=== PATIENT | female | born 1990 | race Caucasian/White ===

== ENCOUNTER → 2018-10-20 | Outpatient (CLI) | payer BC, OTHER ==
[~2018-10-20] MED LIST: DOCU100C37 PO; FERR-84 PO; IBUP-1773 PO; MULT-228 PO
--- NOTE | 2018-10-20 18:13 | Diagnostic Imaging Report ---
EXAM: OB ultrasound complete. DATE: October 20, 2018. COMPARISON: None. INDICATION: 28-year-old female, supervision of otherwise normal . FINDINGS: Multiple grayscale sonographic images were obtained of the gravid uterus. OVERVIEW: Within the uterus there is a single living gestation in cephalic position. There is positive movement and heart motion. heart rate was identified at 136 beats per minute. There is a subjectively normal amniotic fluid index. The placenta is posterior and without demonstrated previa. The cervix is not well demonstrated. growth parameters are summarized in detail on the accompanying separate chart. The approximate mean gestational age by first ultrasound measurements is 20 weeks 2 days +/- 1 week variability. Estimated weight based on today's measurements is 318 g. ANATOMIC SURVEY: There is unremarkable appearance of the posterior fossa. The lateral ventricles are not well demonstrated. Longitudinal images of the spine are unremarkable. There is visualization of the stomach, kidneys and urinary bladder. There is no provided four-chamber view of the heart. There is a three-vessel cord with an unremarkable insertion into the abdominal wall. 4 extremities are seen. IMPRESSION: 1. Single living intrauterine with approximate mean gestational age of 20 weeks 2 days +/- 1 week. 2. Limitations of the survey, as above, without demonstrated abnormality. BIOMETRICAL MEASUREMENTS ARE FOLLOWS: Biparietal 4.68 cm, age 20 weeks 2 days. Head circumference 17.43 cm, age 20 weeks 0 days. Abdominal circumference 14.31 cm, age 19 weeks 5 days. Femur length 3.23 cm, age 20 weeks 1 days. Sonographic estimate age: 20 weeks 1 days. Sonographic estimated date of delivery: 03/08/2019. Estimated Weight: 318 gm (+/- 46 gm). LMP percentile: 24%. heart rate: 136 beats per minute. number: 1 of 1. Dictated by: Dictated on workstation # [id number]
== END ==
LOC: RAD 15:35
PROVIDERS: ATTEND Obstetrics & Gynecology
DX: Z34.92 Encounter for supervision of normal pregnancy, unspecified, second trimester (principal); Z3A.20 20 weeks gestation of pregnancy
CPT/HCPCS: 76805

== ENCOUNTER 2019-02-20 00:15 | Outpatient (CLI) | payer BC ==
[~2019-02-20] VITALS: Ht 157.5 cm; Wt 71.7 kg
--- NOTE | 2019-02-20 00:10 | NUR ---
BONNY GILL presented to unit via ambulation from ED, accompanied by SO, with c/o CONTRACTIONS. BONNY GILL weighed, gowned, voided, and to bed. EFHM and TOCO applied, VS taken. BONNY GILL oriented to bed controls, call light, TV, heat, and A/C controls.
[2019-02-20 00:16] VITALS: BP 130/87
[2019-02-20 00:45] LABS: BILIRUBIN,URINE NEGATIVE (NEGATIVE); CLARITY,URINE CLEAR; COLOR,URINE YELLOW; GLUCOSE, URINE (UA) NEGATIVE (NEGATIVE); KETONES,URINE NEGATIVE (NEGATIVE); LEUKOCYTE ESTERASE ,URINE NEGATIVE (NEGATIVE); NITRITE,URINE NEGATIVE (NEGATIVE); PH,URINE 6 (5-9); PROTEIN,URINE NEGATIVE (NEGATIVE); UROBILINOGEN,URINE NORMAL (NORMAL)
[2019-02-20 00:46] LABS: BACTERIA,URINE NEGATIVE /HPF
--- NOTE | 2019-02-20 01:30 | NUR ---
D/C instructions given & explained per Nikolas Miller, RN, pt. verbalized understanding & signed. Copy of D/C instructions to pt. Pt. left [facility] ambulatory escorted by , to home via private vehicle.
== END 2019-02-20 01:30 | disposition home or self-care (01) ==
LOC: LDRP 00:15 → UNDOADMIN 00:15 → WSo 00:15 → LDRP 00:15 → UNDODISIN 01:30 → WSo 01:30 → EDSTATUS 02-23 13:58
PROVIDERS: ATTEND Obstetrics & Gynecology
DX: O62.9 Abnormality of forces of labor, unspecified (principal); Z3A.37 37 weeks gestation of pregnancy
CPT/HCPCS: 81000; 99214

== ENCOUNTER 2019-03-07 09:51 | Inpatient (IN) | payer BC ==
[~2019-03-07] VITALS: Ht 157.5 cm; Wt 72.7 kg
[2019-03-07] VITALS (40 sets, daily range): BP systolic 78–133; BP diastolic 41–85
--- NOTE | 2019-03-07 09:45 | NUR ---
BONNY GILL presented to unit via AMBULATORY from OFFICE, accompanied by DR. FORREST FOR LABOR. BONNY GILL weighed, gowned, voided, and to bed. EFHM and TOCO applied, VS taken. BONNY GILL oriented to bed controls, call light, TV, heat, and A/C controls.
[2019-03-07] MEDS ORDERED: D5 LR IV SOLUTION 1,000 ML IV SCH (10:12)
[2019-03-07] MEDS ORDERED: D5 LR IV SOLUTION 1,000 ML IV ONE (10:16)
--- NOTE | 2019-03-07 10:16 | History & Physical-OB ---
OB - Chief Complaint & HPI Date/Time Date of Admission: Date of Admission: March 07, 2019 at 09:51 Date seen by a Provider: March 07, 2019 Time Seen by a Provider: 09:30 Chief Complaint/History OB-Reason for Admission/Chief: Onset of Labor Hx : 2 Hx Para: 1 Expected Date of Delivery: March 07, 2019 Admission Nurse Assessment Rev: Yes History of Labs A pos Antibody neg RI RPR NR HBsAg NR HIV NR GC neg GBS neg Allergies and Home Medications Allergies Coded Allergies: Penicillins (Verified Allergy, Unknown, 12/04/15) codeine (Verified Adverse Reaction, Mild, HALLUCINATIONS, HAS HAD LORTAB BEFORE, 12/11/15) Home Medications Multivitamin 1 Each Tab.chew, 1 EACH PO DAILY, (Reported) Patient Home Medication List Home Medication List Reviewed: Yes OB - History Hx of Present Care: Yes Ultrasounds: Normal mid trimester US Obstetrical Complications: None Medical Complications: None Obstetrical History Hx Termination: No Hx Multiple Gestation: No Hx Stillbirth: No Hx Complication: No Hx Induced Hypertens: No Hx Maternal Gestational Diabet: No Delivery History Hx Dystocia: No Hx Large For Gestational Age I: No Hx Small for Gestational Age I: No Hx Section: No Hx Vaginal Delivery Post C-Sec: No Hx Blood Disorders: No Adverse Rxn to Tranfusion: No Patient Past Medical History none Immunizations Hepatitis A: No Hepatitis B: Yes Tetanus Booster (TDap): Less than 5yrs Date of Influenza Vaccine: Sep 02, 2015 OB - Admission Exam Physical Exam HEENT: NCAT Heart: Rhythm Normal Lungs: Clear Abdomen: Gravid Extremities: Normal Reflexes: Normal Cervical Dilatation: 3cm Effacement: 75% Station: -1 Membranes: Intact Heart Rate: 130's Accelerations: Accelerations Present Decelerations: No Decelerations Short Term Variability: Present Correction Variability: Average (6-25) Contractions on Admission: < 5 Minutes Apart OB - Assessment/Plan/Diagnosis Assessment Assessment: active labor Admission Dx 28 yo @ 40 weeks Post dates Active labor GBS neg Admission Status: Inpatient Order (span 2 midnights) Reason for Inpatient Admission: active labor term Plan Plan: Expectant Management SHIKHA FORREST DO March 07, 2019 10:16
[2019-03-07 10:19] LABS: BASOPHILS % (AUTO) 0 % (0-10); EOSINOPHILS # (AUTO) 0.1 10^3/uL (0.0-0.3); EOSINOPHILS % (AUTO) 1 % (0-10); HEMATOCRIT 37 % (35-52); HEMOGLOBIN 12.9 G/DL (11.5-16.0); LYMPHOCYTES # (AUTO) 1.8 X 10^3 (1.0-4.0); LYMPHOCYTES % (AUTO) 19 % (12-44); MEAN CORPUSCULAR HEMOGLOBIN 32 PG (25-34); MEAN CORPUSCULAR HGB CONC 35 G/DL (32-36); MEAN CORPUSCULAR VOLUME 92 FL (80-99); MEAN PLATELET VOLUME 10.7 FL (7.4-10.4); MONOCYTES # (AUTO) 0.8 X 10^3 (0.0-1.0); MONOCYTES % (AUTO) 9 % (0-12); NEUTROPHILS # (AUTO) 6.9 X 10^3 (1.8-7.8); NEUTROPHILS % (AUTO) 72 % (42-75); PLATELET COUNT 149 10^3/uL (130-400); RED CELL DISTRIBUTION WIDTH 12.5 % (10.0-14.5); WHITE BLOOD COUNT 9.6 10^3/uL (4.3-11.0)
[2019-03-07] MEDS ORDERED: ONDANSETRON 4 MG/2 ML (SDV) Z0FRAN IVP PRN (12:15)
--- OUTSIDE RECORDS SUMMARY | 2019-03-07 12:48 | XMS REPORT | Continuity of Care Document ---
Author Organization Unknown Address Unknown Allergies Active Description Code Type Severity Reaction Onset Reported/Identified Relationship to Patient Clinical Status Yes codeine [id number] Drug Allergy Unknown N/A 12/04/2015 Yes Penicillins [id number] Drug Allergy Unknown N/A 12/04/2015 Yes codeine [id number] Drug Allergy Mild HALLUCINATIONS, 12/11/2015 Medications There is no data. Problems Date Dx Coded Attending Type Code Diagnosis Diagnosed By 05/24/2014 SENDY WANG DO V06.1 TDAP DX 12/04/2015 Ot N89.8 OTHER SPECIFIED NONINFLAMMATORY DISORDER 12/04/2015 Ot O26.893 OTH RELATED CONDITIONS, THIRD 12/04/2015 Ot O47.1 FALSE LABOR AT OR AFTER 37 COMPLETED WEE 12/04/2015 Ot Z3A.37 37 WEEKS GESTATION OF 12/09/2015 LUIS A ASHLEY, KEANU Hearn Ot Z34.93 ENCNTR FOR SUPRVSN OF NORMAL PREG, UNSP, 12/13/2015 SHIKHA FORREST DO Ot D62 ACUTE POSTHEMORRHAGIC ANEMIA 12/13/2015 SHIKHA FORREST DO Ot O90.81 ANEMIA OF THE PUERPERIUM 12/13/2015 SHIKHA FORREST DO Ot Z37.0 SINGLE LIVE 12/13/2015 SHIKHA FORREST DO Ot Z3A.38 38 WEEKS GESTATION OF 10/21/2018 SHIKHA FORREST DO Ot Z34.92 ENCNTR FOR SUPRVSN OF NORMAL PREG, UNSP, 10/21/2018 SHIKHA FORREST DO Ot Z3A.20 20 WEEKS GESTATION OF 11/05/2018 SHIKHA FORREST DO Ot Z34.92 ENCNTR FOR SUPRVSN OF NORMAL PREG, UNSP, 11/05/2018 SHIKHA FORREST DO Ot Z3A.20 20 WEEKS GESTATION OF 02/20/2019 SHIKHA FORREST DO Ot O62.9 ABNORMALITY OF FORCES OF LABOR, UNSPECIF 02/20/2019 FENECH DO, SHIKHA S Ot Z3A.37 37 WEEKS GESTATION OF 02/23/2019 FENECH DO, SHIKHA S Ot O62.9 ABNORMALITY OF FORCES OF LABOR, UNSPECIF 02/23/2019 FENECH DO, SHIKHA S Ot Z3A.37 37 WEEKS GESTATION OF 02/23/2019 FENECH DO, SHIKHA S Ot Z34.92 ENCNTR FOR SUPRVSN OF NORMAL PREG, UNSP, 02/23/2019 STEVEECH DO, SHIKHA S Ot Z3A.20 20 WEEKS GESTATION OF 02/23/2019 FENECH DO, SHIKHA S Ot O62.9 ABNORMALITY OF FORCES OF LABOR, UNSPECIF 02/23/2019 FENECH DO, HSIKHA S Ot Z3A.37 37 WEEKS GESTATION OF 02/24/2019 STEVEECH DO, SHIKHA S Ot O62.9 ABNORMALITY OF FORCES OF LABOR, UNSPECIF 02/24/2019 FENECH DO, SHIKHA S Ot Z3A.37 37 WEEKS GESTATION OF Procedures Code Description Performed By Performed On 2M1VDFN DIVISION OF FEMALE PERINEUM, EXTERNAL AP 12/11/2015 [id number] DELIVERY OF PRODUCTS OF CONCEPTION, EXTE 12/11/2015 Results Test Result Range Complete urinalysis with reflex to culture - 02/20/19 00:10 Urine color determination YELLOW NRG Urine clarity determination CLEAR NRG Urine pH measurement by test strip 6 5-9 Specific gravity of urine by test strip 1.020 1.016- 1.022 Urine protein assay by test strip, semi-quantitative NEGATIVE NEGATIVE Urine glucose detection by automated test strip NEGATIVE NEGATIVE Erythrocytes detection in urine sediment by light microscopy NEGATIVE NEGATIVE Urine ketones detection by automated test strip NEGATIVE NEGATIVE Urine nitrite detection by test strip NEGATIVE NEGATIVE Urine total bilirubin detection by test strip NEGATIVE NEGATIVE Urine urobilinogen measurement by automated test strip (mass/volume) NORMAL NORMAL Urine leukocyte esterase detection by dipstick NEGATIVE NEGATIVE Automated urine sediment erythrocyte count by microscopy (number/high power field) NONE NRG Automated urine sediment leukocyte count by microscopy (number/high power field ) NONE NRG Bacteria detection in urine sediment by light microscopy NEGATIVE NRG Squamous epithelial cells detection in urine sediment by light microscopy 2-5 NRG Crystals detection in urine sediment by light microscopy NONE NRG Casts detection in urine sediment by light microscopy NONE NRG Mucus detection in urine sediment by light microscopy NEGATIVE NRG Complete urinalysis with reflex to culture NO NRG Encounters ACCT No. Visit Date/Time Discharge Status Pt. Type Provider Facility Loc./Unit Complaint [id number] 05/24/2014 15:04:00 05/24/2014 23:59:59 CLS Outpatient SENDY WANG DO [id number] 02/20/2019 00:15:00 02/20/2019 01:30:00 DIS Outpatient SHIKHA FORREST DO [facility] WSo CONTRACTIONS [id number] 10/20/2018 15:35:00 10/20/2018 23:59:59 CLS Outpatient SHIKHA FORREST DO [facility] RAD [id number] 12/10/2015 15:04:00 12/13/2015 15:20:00 DIS Inpatient SHIKHA FORREST DO [facility] LDRP LABOR [id number] 12/09/2015 10:26:00 12/09/2015 10:34:00 DIS Outpatient KEANU GUNN MD [facility] POSSIBLE WATER BREAKING [id number] 12/04/2015 20:02:00 Document Registration [id number] 11/25/2018 14:20:00 11/25/2018 23:59:59 [facility]
--- NOTE | 2019-03-07 13:18 | NUR ---
Anesthesia called and notified of need for labor epidural.
[2019-03-07] MEDS ORDERED: SUFENTA 0.6MCG/ML BUPIVA 0.125 100 ML ONE (13:19)
[2019-03-07] MEDS ORDERED: CATHETER FLUSH 10 ML SYR IV SCH ×2 (14:00→22:00)
[2019-03-07] MEDS ORDERED: fentaNYL INJECTION 100 MCG/2 ML AMP ONE (14:11)
[2019-03-07] MEDS ORDERED: LACTATED RINGERS 1,000 ML IV ONE (14:13)
[2019-03-07] MEDS ORDERED: diphenhydrAMINE 50 MG/ML INJ (BENADRYL) IV PRN (14:15)
[2019-03-07] MEDS ORDERED: ONDANSETRON 4 MG/2 ML (SDV) Z0FRAN IV PRN (14:15)
[2019-03-07] MEDS ORDERED: NALOXONE 0.4 MG/ML 1 ML (NARCAN) VIAL IV PRN ×2 (14:15)
[2019-03-07] MEDS ORDERED: EPIDURAL (SUFENTA 0.6MCG/ML BUPIVA 0.125%) 100 ML BAG EPI PRN (14:15)
[2019-03-07] MEDS ORDERED: METOCLOPRAMIDE INJ 10 MG/2 ML (REGLAN) IV PRN (14:15)
[2019-03-07] MEDS ORDERED: OXYTOCIN/NORMAL SALINE 500 ML IV ONE ×2 (14:47→17:17)
[2019-03-07] MEDS ORDERED: LIDOCAINE/EPI 2% 1:200,00 (XYLOCAINE) 10 ML VIAL ONE (16:03)
[2019-03-07] MEDS ORDERED: OXYTOCIN/NORMAL SALINE 500 ML IV SCH ×2 (17:07→17:42)
--- NOTE | 2019-03-07 17:14 | OB Labor & Delivery Record ---
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 Pitocin augmentation of 2 mu/min used to progress patient to complete and +2 station L&D Stage2 Monitors and Tracing Monitor Mode: External Heart Rate: 140 Monitor Accelerations: Uniform Monitor Decelerations: Variable Penitentiary Variability: Average (6-10) Short Term Variability: Present Position: Right Occiput Anterior Presentation: Vertex Cord Descript/Complications Cord Vessel Description: 3 Vessels Delivery Type Infant Delivery Method: Spontaneous Vaginal Anterior Shoulder: Right Episiotomy/Perineal Laceration Laceraction(s)/Extensions: Yes Episiotomy Description: Midline Degree (describe repair) midline episiotomy repaired using 3-0 rapide and 2-0 vicryl suture Condition of Delivery 1 minute Comment: 8 5 minute Comment: 9 Notes Live male infant weight 7lbs 9oz Condition of Infant Condition of Infant: Living Exam: Gross Congenital Abnorm. (polydactyl, hypospadias) Resuscitation Resuscitation: N/A - Spontaneous Resp L&D Stage3 Stage Three Stage III Date: March 07, 2019 Pictocin Pitocin Administration Comment: 30 mu wide open at delivery of placenta Placenta Delivery Placenta Delivery: Spontaneous Delivery Summary Summary Estimated blood loss (mL): 350 Attending at delivery: Susie Forrest DO Condition of Delivery Post Hemorrhage: Yes Condition of Mother stable Condition of (s) stable SUSIE FORREST DO March 07, 2019 17:14
[2019-03-07] MEDS ORDERED: TETANUS,DIPTH,PERTUSS P/F (BOOSTRIX) 0.5 ML VIAL IM ONE (17:15)
[2019-03-07] MEDS ORDERED: WITCH HAZEL(TUCKS) 40 EA JAR TOP PRN (17:15)
[2019-03-07] MEDS ORDERED: DIBUCAINE (NUPERCAINAL) 1% OINT 30 GM TOP PRN (17:15)
[2019-03-07] MEDS ORDERED: HYDROcodone/APAP 5 MG/325 MG (LORTAB) TAB PO PRN (17:15)
[2019-03-07] MEDS ORDERED: MEASLES,MUMPS,RUBELLA 1 EA INJ SQ ONE (17:15)
[2019-03-07] MEDS ORDERED: BENZOCAINE/MENTHOL (DERMOPLAST) 56 ML CAN TP PRN (17:15)
--- NOTE | 2019-03-07 17:16 | Discharge Inst-Women's Service ---
Discharge Inst-Women's Serv Depart Medication/Instructions New, Converted or Re-Newed RX: RX on Chart Final Diagnosis PPD 2 NVD Consults/Follow Up Additional Follow Up: Yes Orders/Referrals [facility] in 6 weeks Activity Activity: Activity as Tolerated Driving Instructions: No Driving for 1 Week NO SMOKING: NO SMOKING Nothing Inside Vagina: No Douching, No [place], No Tampons Diet Discharge Diet: No Restrictions Symptoms to Report to : Bleeding Excessive, Pain Increased, Fever Over 101 Degrees F, Vaginal Bleeding Increase, Questions/Concerns For Any Problems or Questions: Contact Your Physician SHIKHA FORREST DO March 07, 2019 17:16
[2019-03-07] MEDS ORDERED: Benzocaine/Menthol TP (17:18)
[2019-03-07] MEDS ORDERED: IBUP-844 PO (17:18)
[2019-03-07] MEDS ORDERED: FERR325T18 PO (17:18)
[2019-03-07] MEDS ORDERED: DOCU-143 PO (17:18)
[2019-03-07] MEDS ORDERED: ACHD5005 PO (17:18)
[2019-03-07] MEDS: IBUPROFEN 600 MG (MOTRIN) TAB PO SCH (19:56)
[2019-03-07] MEDS: DOCUSATE SODIUM 100 MG (COLACE) CAP PO SCH (19:56)
--- NOTE | 2019-03-07 20:00 | NUR ---
pt vomiting. wet cloth provided. pt denies any need for anti-nausea. meal tray delivered. pt will call out when finished to be moved to 311
--- NOTE | 2019-03-07 21:03 | NUR ---
FF 1 BELOW UMBILICUS. LIGHT RUBRA NOTED. PAD AND PANTIES APPLIED. PT ASSISTED UP TO W'C AND TAKEN DOWN TO 311. PT ASSISTED TO BATHROOM. POSITIVE VOID. PERICARE COMPLETED. PT AMBULATED BACK TO BED. ORIENTATED TO ROOM. INFO PAPERS DISCUSSED. PT VERBALIZED UNDERSTANDING. WILL CONTINUE TO MONITOR.
[2019-03-08] MEDS: ACETAMINOPHEN 500 MG TAB (TYLENOL) PO PRN ×3 (00:27→18:34)
[2019-03-08 02:00] VITALS: BP 99/64
[2019-03-08] MEDS: IBUPROFEN 600 MG (MOTRIN) TAB PO SCH ×4 (02:14→21:11)
--- NOTE | 2019-03-08 05:20 | Postpartum Progress Note ---
Note Note Day # 1 Subjective: Patient is without complaints. Ambulating, voiding. Tolerating a regular diet without nausea or vomiting. Normal lochia. Pain is well controlled with oral pain medications. Objective: Physical Exam: General - Alert and oriented, no apparent distress Abdomen - Soft, appropriately tender to palpation, non-distended, fundus firm at umbilicus Extremities - no edema, negative Shira's bilaterally Assessment: PPD 1 NVD CBC pending Plan: Routine care. Encourage breast feeding. Encourage ambulation. Ferrous sulfate supplementation. Plan for discharge tomorrow Vitals - Labs Vital Signs - I&O Vital Signs Date Time Temp Pulse Resp B/P (MAP) Pulse Ox O2 Delivery O2 Flow Rate FiO2 03/08/19 02:00 98.1 64 18 99/64 (76) Room Air 03/07/19 21:00 99.2 85 18 114/68 (83) Room Air 03/07/19 18:51 81 18 103/70 (81) Room Air 03/07/19 18:36 98.7 63 18 101/67 (78) Room Air 03/07/19 18:22 66 18 119/71 (87) Room Air 03/07/19 18:06 85 18 108/62 (77) Room Air 03/07/19 17:21 98.6 72 18 100/58 (72) Room Air 03/07/19 16:38 92 18 122/77 (92) Room Air 03/07/19 16:24 73 18 116/73 (87) Room Air 03/07/19 16:08 96 18 113/66 (82) Room Air 03/07/19 15:53 100 18 103/63 (76) Room Air 03/07/19 15:35 78 18 99/50 (66) 99 Room Air 03/07/19 15:30 104 18 92/60 (71) 94 Room Air 03/07/19 15:25 81 18 102/62 (75) 100 Room Air 03/07/19 15:20 91 18 106/63 (77) 100 Room Air 03/07/19 15:15 64 18 96/58 (71) 99 Room Air 03/07/19 15:10 69 18 99/64 (76) 100 Room Air 03/07/19 15:05 100 18 96/56 (69) 99 Room Air 03/07/19 15:00 88 18 101/60 (74) 100 Room Air 03/07/19 14:55 98.3 03/07/19 14:49 65 18 100/63 (75) 100 Room Air 03/07/19 14:46 70 18 105/63 (77) 100 Room Air 03/07/19 14:43 92 18 101/61 (74) 96 Room Air 03/07/19 14:40 97 18 101/57 (72) 96 Room Air 03/07/19 14:37 86 18 111/63 (79) Room Air 03/07/19 14:34 63 18 117/56 (76) 99 Room Air 03/07/19 14:31 80 18 116/58 (77) 98 Room Air 03/07/19 14:28 78 18 124/57 (79) Room Air 03/07/19 14:25 83 18 101/55 (70) 100 Room Air 03/07/19 14:22 82 18 110/51 (70) 100 Room Air 03/07/19 14:18 67 18 106/52 (70) 100 Non Rebreather 10.00 03/07/19 14:13 59 18 90/54 (66) 100 Non Rebreather 10.00 03/07/19 14:08 91 18 109/62 (78) Room Air 03/07/19 14:03 88 18 111/53 (72) 92 Room Air 03/07/19 13:45 84 20 78/41 (53) Room Air 03/07/19 13:00 63 20 109/59 (76) Room Air 03/07/19 12:30 68 20 100/54 (69) Room Air 03/07/19 12:04 98.5 03/07/19 11:58 83 20 114/66 (82) Room Air 03/07/19 11:27 76 20 120/85 (97) Room Air 03/07/19 11:00 83 20 113/74 (87) Room Air 03/07/19 10:30 68 20 133/80 (97) Room Air 03/07/19 10:00 90 20 114/81 (92) Room Air I & O 03/08/19 07:00 Intake Total 3000 ml Balance 3000 ml Labs Laboratory Tests 03/07/19 10:02: White Blood Count 9.6, Red Blood Count 4.08L, Hemoglobin 12.9, Hematocrit 37, Mean Corpuscular Volume 92, Mean Corpuscular Hemoglobin 32, Mean Corpuscular Hemoglobin Concent 35, Red Cell Distribution Width 12.5, Platelet Count 149, Mean Platelet Volume 10.7H, Neutrophils (%) (Auto) 72, Lymphocytes (%) (Auto) 19 , Monocytes (%) (Auto) 9, Eosinophils (%) (Auto) 1, Basophils (%) (Auto) 0, Neutrophils # (Auto) 6.9, Lymphocytes # (Auto) 1.8, Monocytes # (Auto) 0.8, Eosinophils # (Auto) 0.1, Basophils # (Auto) 0.0 SHIKHA FORREST DO March 08, 2019 05:20
[2019-03-08 06:19] VITALS: BP 105/68
[2019-03-08 06:24] LABS: BASOPHILS % (AUTO) 0 % (0-10); EOSINOPHILS # (AUTO) 0.1 10^3/uL (0.0-0.3); EOSINOPHILS % (AUTO) 1 % (0-10); HEMATOCRIT 29 % (35-52); HEMOGLOBIN 9.7 G/DL (11.5-16.0); LYMPHOCYTES # (AUTO) 1.5 X 10^3 (1.0-4.0); LYMPHOCYTES % (AUTO) 16 % (12-44); MEAN CORPUSCULAR HEMOGLOBIN 31 PG (25-34); MEAN CORPUSCULAR HGB CONC 34 G/DL (32-36); MEAN CORPUSCULAR VOLUME 93 FL (80-99); MEAN PLATELET VOLUME 10.6 FL (7.4-10.4); MONOCYTES % (AUTO) 11 % (0-12); NEUTROPHILS % (AUTO) 72 % (42-75); PLATELET COUNT 135 10^3/uL (130-400); RED CELL DISTRIBUTION WIDTH 12.4 % (10.0-14.5); WHITE BLOOD COUNT 9.6 10^3/uL (4.3-11.0)
--- NOTE | 2019-03-08 07:00 | NUR ---
REPORT FROM CHIP PEREZ.
[2019-03-08 08:15] VITALS: BP 116/69
[2019-03-08] MEDS: FERROUS SULF 325 MG (IRON) TAB PO SCH (09:38)
[2019-03-08] MEDS: PRENATAL VITAMIN 1 EA TAB PO SCH (09:38)
[2019-03-08] MEDS: DOCUSATE SODIUM 100 MG (COLACE) CAP PO SCH ×2 (09:39→21:11)
--- NOTE | 2019-03-08 09:45 | NUR ---
INITIAL ASSESSMENT COMPLETED, VSS, SEE INTERVENTIONS FOR DETAILED ASSESSMENT.
[2019-03-08 13:00] VITALS: BP 118/62
--- NOTE | 2019-03-08 13:38 | Anesthesia-Regional Post-Op ---
Regional Patient Condition Mental Status: Alert, Oriented x3 Circulation: Same as Pre-Op Headache: Absent Sensation: Full Recovery Motor Block: Absent Post Op Complications Complications None Follow Up Care/Instructions Patient Instructions None needed. Anesthesia/Patient Condition Patient is doing well, no complaints, stable vital signs, no apparent adverse anesthesia problems. No complications reported per nursing. NISH SPRINGER CRNA March 08, 2019 13:38
[2019-03-08 16:00] VITALS: BP 133/83
--- NOTE | 2019-03-08 18:35 | NUR ---
PT IN BED, FAMILY AT THE BEDSIDE. TYLENOL GIVEN PO; SEE EMAR FOR FURTHER. SHOWER SET UP PER REQUEST. NO FURTHER NEEDS VOICED, CALL LIGHT WITHIN REACH.
[2019-03-08 21:10] VITALS: BP 116/64
[2019-03-09] MEDS: ACETAMINOPHEN 500 MG TAB (TYLENOL) PO PRN (03:04)
[2019-03-09 04:57] VITALS: BP 98/55
[2019-03-09] MEDS: IBUPROFEN 600 MG (MOTRIN) TAB PO SCH ×3 (04:57→10:20)
--- NOTE | 2019-03-09 07:27 | Postpartum Progress Note ---
Note Note Day # 2 Subjective: Patient is without complaints. Ambulating, voiding. Tolerating a regular diet without nausea or vomiting. Normal lochia. Pain is well controlled with oral pain medications. Objective: Physical Exam: General - Alert and oriented, no apparent distress Abdomen - Soft, appropriately tender to palpation, non-distended, fundus firm at umbilicus Extremities - no edema, negative Shira's bilaterally Assessment: PPD 2 NVD Plan: Routine care. Encourage breast feeding. Encourage ambulation. Ferrous sulfate supplementation. Plan for discharge today Vitals - Labs Vital Signs - I&O Vital Signs Date Time Temp Pulse Resp B/P (MAP) Pulse Ox O2 Delivery O2 Flow Rate FiO2 03/09/19 04:57 98.0 74 18 98/55 (69) 97 Room Air 03/08/19 21:10 98.3 60 18 116/64 (81) 98 Room Air 03/08/19 16:00 98.7 73 18 133/83 (100) 100 Room Air 03/08/19 13:00 98.9 97 18 118/62 (80) 97 Room Air 03/08/19 08:15 98.4 69 18 116/69 (85) 98 Room Air SHIKHA FORREST DO March 09, 2019 07:27
[2019-03-09 07:31] VITALS: BP 112/70
--- NOTE | 2019-03-09 07:47 | NUR ---
PT UP IN ROOM, INITIAL SHIFT ASSESSMENT COMPLETED; SEE INTERVENTION FOR FURTHER. S/O AT THE BEDSIDE. NO NEEDS VOICED AT THIS TIME.
--- NOTE | 2019-03-09 08:05 | NUR ---
DR. FORREST HERE ON UNIT, MAKING ROUNDS.
[2019-03-09] MEDS: DOCUSATE SODIUM 100 MG (COLACE) CAP PO SCH (10:20)
[2019-03-09] MEDS: FERROUS SULF 325 MG (IRON) TAB PO SCH (10:20)
[2019-03-09] MEDS: PRENATAL VITAMIN 1 EA TAB PO SCH (10:20)
--- NOTE | 2019-03-09 10:20 | NUR ---
PT . MEDS GIVEN PO; SEE EMAR FOR FURTHER. PT DENIES ANY NEEDS AT THIS TIME. PT INFORMED OF IMPENDING DISCHARGE, WILL COME BACK SHORTLY TO PROVIDE DISCHARGE INSTRUCTIONS, PT VERBALIZES UNDERSTANDING.
--- NOTE | 2019-03-09 10:55 | NUR ---
THIS RN TO BEDSIDE, PT HOLDING INFANT. DISCHARGE PAPERS PROVIDED AND REVIEWED WITH PT, PT VERBALIZES UNDERSTANDING AND DENIES ANY QUESTIONS AT THIS TIME. PAPER SIGNED. RX'S AND FOLLOW UP APPOINTMENT CARD ALSO PLACED INTO DISCHARGE FOLDER. NO NEEDS VOICED, CALL LIGHT WITHIN REACH.
--- NOTE | 2019-03-09 12:45 | NUR ---
PT DISCHARGED FROM -[facility] TO PERSONAL AUTO VIA AMBULATORY IN STABLE CONDITION ACC BY S/O, AND [facility] NURSING STUDENTS.
--- NOTE | 2019-03-10 18:36 | Physician Query Clarification ---
PQ-Intro New Diagnosis Admission/Discharge Admission Date: March 07, 2019 at 09:51 Discharge Date: March 09, 2019 at 12:45 The medical record reflects the following clinical scenario: History/Risk Factors: delivery Clinical Findings: Hemoglobin 12.9 on admission, dropped to 9.7 Treatment: Ferrous sulfate supplementation Question: What condition best reflects the above clinical scenario? Please document below. 1. Acute blood loss anemia 2. anemia 3. Other, with explanation of the clinical findings. 4. Clinically undetermined, no explanation for the clinical findings. PHYSICIAN RESPONSE What condition reflects above: Other, explanation/clinical finding Explanation of clincal finding , acute blood loss anemia In responding to this query, please exercise your independent professional judgment. The purpose of this communication is to more accurately reflect the complexity of your patients condition. The fact that a question is asked does not imply that any particular answer is desired or expected. Thank you for your timely response to this clarification. Requestors name: [ ] Phone # [ ] THIS PHYSICIAN QUERY FORM IS A PERMANENT PART OF THE MEDICAL RECORD TRACEY CORTEZ March 10, 2019 18:36 SHIKHA FORREST DO March 11, 2019 06:44
== END 2019-03-09 12:45 | disposition home or self-care (01) | DRG 806 ==
LOC: LDRP 09:51
PROVIDERS: ADMIT Obstetrics & Gynecology; ATTEND Obstetrics & Gynecology
PROC: 10E0XZZ Delivery of Products of Conception, External Approach (ICD-10-PCS; principal; 2019-03-07)
PROC: 0W8NXZZ Division of Female Perineum, External Approach (ICD-10-PCS; 2019-03-07)
DX: O48.0 Post-term pregnancy (principal); O90.81 Anemia of the puerperium; D62 Acute posthemorrhagic anemia; Z88.0 Allergy status to penicillin; Z88.5 Allergy status to narcotic agent; Z3A.40 40 weeks gestation of pregnancy; Z37.0 Single live birth
CPT/HCPCS: 36415; 85025; 86850; 86900; 86901

== ENCOUNTER → 2022-11-12 | Outpatient (CLI) | payer MEDICAID ==
[~2022-11-12] MED LIST changes: +ACHD5005 PO; +Benzocaine/Menthol TP; +DOCU-143 PO; +FERR325T18 PO; +IBUP-844 PO
--- NOTE | 2022-11-12 11:55 | Diagnostic Imaging Report ---
INDICATION: survey. TECHNIQUE: Multiple real-time grayscale images were obtained over the gravid uterus. COMPARISON: None. FINDINGS: There is a single live fetus in a transverse presentation with head to the maternal left. heart rate was recorded at 147 BPM. Placenta is posterior. No previa is detected. Amniotic fluid volume is normal. Cervical length is 3.3 cm. kidneys, bladder and stomach are unremarkable. brain is unremarkable. There is a four-chamber heart. There is a three-vessel cord with normal insertion. spine is unremarkable. Biometrical measurements are as follows: Biparietal 4.22 cm, age 18 weeks 6 days. Head circumference 17.37 cm, age 20 weeks 0 days. Abdominal circumference 15.30 cm, age 20 weeks 4 days. Femur length 3.20 cm, age 20 weeks 0 days. Sonographic estimate age: 19 weeks 6 days. Sonographic estimated date of delivery: 04/02/2023. Estimated Weight: 336 gm (+/- 49 gm). LMP percentile: 25%. heart rate: 147 beats per minute. number: 1 of 1. IMPRESSION: Single live IUP of 19 weeks 6 days gestational age with estimated date of confinement sonographically of 04/02/2023. No complicating features are detected. Dictated by: Dictated on workstation # [id number]
== END ==
LOC: RAD 09:33
PROVIDERS: ATTEND Obstetrics & Gynecology
DX: Z36.9 Encounter for antenatal screening, unspecified (principal); Z3A.19 19 weeks gestation of pregnancy
CPT/HCPCS: 76805

== ENCOUNTER → 2023-03-05 | Outpatient (CLI) | payer MEDICAID | LOC: LABNPT 10:40 | PROVIDERS: ATTEND Nurse Practitioner Women's Health | DX: R51.9 Headache, unspecified (principal) | CPT/HCPCS: 82570; 84156 ==

== ENCOUNTER 2023-03-30 19:42 | Inpatient (IN) | payer MEDICAID ==
[2023-03-30] VITALS (32 sets, daily range): BP systolic 64–120; BP diastolic 38–79
[~2023-03-30] VITALS: Ht 165.5 cm; Wt 70.2 kg
[2023-03-30 20:18] LABS: BILIRUBIN,URINE NEGATIVE (NEGATIVE); CLARITY,URINE CLEAR; COLOR,URINE YELLOW; GLUCOSE, URINE (UA) NEGATIVE (NEGATIVE); KETONES,URINE NEGATIVE (NEGATIVE); LEUKOCYTE ESTERASE ,URINE NEGATIVE (NEGATIVE); NITRITE,URINE NEGATIVE (NEGATIVE); PROTEIN,URINE NEGATIVE (NEGATIVE)
[2023-03-30 20:25] LABS: BACTERIA,URINE TRACE /HPF; RBC,URINE 0-2 /HPF; WBC,URINE 0-2 /HPF
[2023-03-30] MEDS ORDERED: MINERAL OIL 30 ML UDC TOP PRN (21:15)
[2023-03-30 21:24] LABS: BASOPHILS % (AUTO) 0 % (0-10); EOSINOPHILS # (AUTO) 0.2 10^3/uL (0.0-0.3); EOSINOPHILS % (AUTO) 2 % (0-10); HEMATOCRIT 30 % (35-52); HEMOGLOBIN 9.6 g/dL (11.5-16.0); LYMPHOCYTES # (AUTO) 1.6 10^3/uL (1.0-4.0); LYMPHOCYTES % (AUTO) 19 % (12-44); MEAN CORPUSCULAR HEMOGLOBIN 30 pg (25-34); MEAN CORPUSCULAR HGB CONC 32 g/dL (32-36); MEAN CORPUSCULAR VOLUME 91 fL (80-99); MEAN PLATELET VOLUME 10.7 fL (9.0-12.2); MONOCYTES # (AUTO) 0.8 10^3/uL (0.0-1.0); MONOCYTES % (AUTO) 10 % (0-12); NEUTROPHILS # (AUTO) 5.8 10^3/uL (1.8-7.8); NEUTROPHILS % (AUTO) 69 % (42-75); PLATELET COUNT 146 10^3/uL (130-400); WHITE BLOOD COUNT 8.5 10^3/uL (4.3-11.0)
[2023-03-30] MEDS ORDERED: LACTATED RINGERS 1,000 ML IV ONE (21:30)
[2023-03-30] MEDS ORDERED: D5 LR IV SOLUTION 1,000 ML IV ONE (21:34)
[2023-03-30] MEDS: D5 LR IV SOLUTION 1,000 ML IV SCH (21:40)
[2023-03-30] MEDS ORDERED: CATHETER FLUSH 10 ML SYR IV SCH (22:00)
[2023-03-30] MEDS ORDERED: fentaNYL 2 mcg/ml BUPIVA 0.125 100 ML ONE (22:04)
[2023-03-30] MEDS ORDERED: ACETAMINOPHEN 500 MG TAB (TYLENOL) ONE (22:04)
[2023-03-30] MEDS ORDERED: ACETAMINOPHEN 500 MG TAB (TYLENOL) PO ONE (22:15)
[2023-03-30] MEDS ORDERED: ONDANSETRON 4 MG/2 ML (SDV) Z0FRAN ONE (22:22)
[2023-03-30] MEDS ORDERED: ONDANSETRON 4 MG/2 ML (SDV) Z0FRAN IVP PRN (22:30)
--- NOTE | 2023-03-30 22:45 | History & Physical-OB/GYN ---
History of Present Illness History of Present Illness Reason for visit/HPI Date of Admission March 30, 2023 at 20:41 I consulted on this patient on Attending Physician Andrei Guzman DO Admitting Physician Admitting Physician: Alyce Moe DO Attending Physician: Alyce Moe DO Consult Allergies and Home Medications Allergies Coded Allergies: Penicillins (Verified Allergy, Unknown, 12/04/15) codeine (Verified Adverse Reaction, Mild, HALLUCINATIONS, HAS HAD LORTAB BEFORE, 12/11/15) Patient Home Medication List Home Medication List Reviewed: Yes Docusate Sodium (Colace) 100 Mg Capsule, 100 MG PO BID Prescribed by: ANDREI GUZMAN on 03/07/191717 Last Action: Reviewed Ferrous Sulfate (Ferrous Sulfate) 325 Mg Tablet, 325 MG PO DAILY Prescribed by: ANDREI GUZMAN on 03/07/191717 Last Action: Reviewed Hydrocodone Bit/Acetaminophen (Lortab 5 Mg Tablet) 1 Tab Tab, 1 TAB PO Q4H PRN for PAIN-MODERATE Prescribed by: ANDREI GUZMAN on 03/07/191717 Last Action: Reviewed Ibuprofen (Ibu) 600 Mg Tablet, 600 MG PO Q6HR Prescribed by: ANDREI GUZMAN on 03/07/191717 Last Action: Reviewed Multivitamin (Flintstones) 1 Each Tab.chew, 1 EACH PO DAILY, (Reported) Entered as Reported by: PENNY DEUTSCH on 12/04/152041 Last Action: Reviewed [Benzocaine/Menthol] 56 ML AEROSOL, 56 ML TP UD PRN for PAIN- SEE INSTRUCTIONS Prescribed by: ANDREI GUZMAN on 03/07/191717 Last Action: Reviewed Past Ufmrlpv-[place]-Imp[facility] Hx Patient Social History Number of Children: 2 Number of living children: 2 Smoking Status: Never a Smoker Recent Hopitalizations: No Immunizations Up To Date Tetanus Booster (TDap): Less than 5yrs Pediatric: Yes Date of Influenza Vaccine: Sep 02, 2015 Seasonal Allergies Seasonal Allergies: No Surgeries Yes (WISDOM TEETH) Respiratory No Cardiovascular No Neurological No Reproductive System Hx : 3 Hx Para: 2 Hx Reproductive Disorders: No HIV/AIDS: No Gastrointestinal Yes Musculoskeletal No Endocrine History of Endocrine Disorders: No HEENT History of HEENT Disorders: No Cancer No Did You Recieve Any Treatments: No Psychosocial History of Psychiatric Problem: No Integumentary History of Skin or Integumenta: No Blood Transfusions History of Blood Disorders: No Adverse Reaction to a Blood Tr: No Family Medical History Family Hx: Drug abuse G8 BROTHER Headache disorder 19 MOTHER Thyroid disease 19 MOTHER Review of Systems : Yes Expected Date of Delivery: March 28, 2023 Physical Exam Physical Exam Vital Signs Vital Signs Date Time Temp Pulse Resp B/P (MAP) Pulse Ox O2 Delivery O2 Flow Rate FiO2 03/30/23 23:56 36.6 03/30/23 23:17 84/47 (59) 03/30/23 23:15 73 73/42 (52) 03/30/23 23:13 70 86/50 (62) 03/30/23 23:11 64 64/38 (47) 03/30/23 23:08 94/54 (67) 100 03/30/23 23:05 104 18 102/56 (71) 100 Room Air 03/30/23 23:02 104 110/62 (78) 03/30/23 22:59 96 20 106/60 (75) 100 Room Air 03/30/23 22:55 83 109/60 (76) 100 Room Air 03/30/23 22:52 81 104/64 (77) 03/30/23 22:49 83 107/59 (75) 100 Room Air 03/30/23 22:46 76 119/63 (81) 100 Room Air 03/30/23 22:44 74 111/55 (73) 03/30/23 22:42 74 113/58 (76) 03/30/23 22:40 63 20 81/49 (60) 100 Room Air 03/30/23 22:33 88 20 119/77 (91) 100 Room Air 03/30/23 22:30 111 22 120/72 (88) 100 Room Air 03/30/23 22:14 37.5 03/30/23 21:45 37.1 03/30/23 20:08 37.3 91 20 99 Room Air I & O 03/31/23 07:00 Intake Total 1000 ml Balance 1000 ml Capillary Refill : Less Than 3 Seconds Labs Laboratory Tests 03/30/23 19:45: Urine Color YELLOW, Urine Clarity CLEAR, Urine pH 6.0, Urine Specific [place] 1.010L, Urine Protein NEGATIVE, Urine Glucose (UA) NEGATIVE, Urine Ketones NEGATIVE, Urine Nitrite NEGATIVE, Urine Bilirubin NEGATIVE, Urine Urobilinogen 0 .2, Urine Leukocyte Esterase NEGATIVE, Urine RBC (Auto) NEGATIVE, Urine RBC 0-2, Urine WBC 0-2, Urine Squamous Epithelial Cells 5-10, Urine Crystals NONE, Urine Bacteria TRACE, Urine Casts NONE, Urine Mucus MODERATEH, Urine Culture Ind icated NO 03/30/23 19:55: Membranes Rupture POSITIVE 03/30/23 21:05: White Blood Count 8.5, Red Blood Count 3.25L, Hemoglobin 9.6L, Hematocrit 30L, Mean Corpuscular Volume 91, Mean Corpuscular Hemoglobin 30, Mean Corpuscular Hemoglobin Concent 32, Red Cell Distribution Width 13.1, Platelet Count 146, Mean Platelet Volume 10.7, Immature Granulocyte % (Auto) 1, Neutrophils (%) (Auto) 69, Lymphocytes (%) (Auto) 19, Monocytes (%) (Auto) 10, Eosinophils (%) (Auto) 2, Basophils (%) (Auto) 0, Neutrophils # (Auto) 5.8, Lymphocytes # (Auto) 1.6, Monocytes # (Auto) 0.8, Eosinophils # (Auto) 0.2, Basophils # (Auto) 0.0, Immature Granulocyte # (Auto) 0.1, Syphilis Total Antibody Negative Comments Assessment/Plan Admission Diagnosis Admission Status: Inpatient Order (span 2 midnights) Diagnosis/Problems Diagnosis/Problems (1) Active labor at term Status: Acute (2) 40 weeks gestation of Status: Acute (3) Spontaneous rupture of amniotic membranes ALYCE MOE DO March 30, 2023 22:45
[2023-03-30] MEDS ORDERED: METOCLOPRAMIDE INJ 10 MG/2 ML (REGLAN) IV PRN (23:00)
[2023-03-30] MEDS ORDERED: NALOXONE 0.4 MG/ML 1 ML (NARCAN) VIAL IV PRN ×2 (23:00)
[2023-03-30] MEDS ORDERED: fentaNYL 2 mcg/ml BUPIVA 0.125 100 ML EPI SCH (23:00)
[2023-03-30] MEDS ORDERED: LACTATED RINGERS 1,000 ML IV SCH (23:00)
[2023-03-30] MEDS ORDERED: ONDANSETRON 4 MG/2 ML (SDV) Z0FRAN IV PRN (23:00)
[2023-03-30] MEDS ORDERED: diphenhydrAMINE 50 MG/ML INJ (BENADRYL) IV PRN (23:00)
[2023-03-31] VITALS (20 sets, daily range): BP systolic 98–124; BP diastolic 53–84
[2023-03-31] MEDS: D5 LR IV SOLUTION 1,000 ML IV SCH (00:22)
--- NOTE | 2023-03-31 01:48 | History & Physical-OB ---
OB - Chief Complaint & HPI Date/Time Date of Admission: Date of Admission: March 30, 2023 at 20:41 Date seen by a Provider: March 31, 2023 Time Seen by a Provider: 01:20 Chief Complaint/History OB-Reason for Admission/Chief: Rupture of Membranes Hx : 3 Hx Para: 2 Expected Date of Delivery: March 28, 2023 Gestational Age in Weeks: 40 Gestational Age in Days: 2 Other reason for admission: This 32yo presents to L&D @ 40w2d for CTXs and SROM that occurred this evening. She denies VB A+ R-I GBs neg Allergies and Home Medications Allergies Coded Allergies: Penicillins (Verified Allergy, Unknown, 12/04/15) codeine (Verified Adverse Reaction, Mild, HALLUCINATIONS, HAS HAD LORTAB BEFORE, 12/11/15) Patient Home Medication List Home Medication List Reviewed: Yes Docusate Sodium (Colace) 100 Mg Capsule, 100 MG PO BID Prescribed by: SHIKHA FORREST on 03/07/191717 Last Action: Reviewed Ferrous Sulfate (Ferrous Sulfate) 325 Mg Tablet, 325 MG PO DAILY Prescribed by: SHIKHA FORREST on 03/07/191717 Last Action: Reviewed Hydrocodone Bit/Acetaminophen (Lortab 5 Mg Tablet) 1 Tab Tab, 1 TAB PO Q4H PRN for PAIN-MODERATE Prescribed by: SHIKHA FORREST on 03/07/191717 Last Action: Reviewed Ibuprofen (Ibu) 600 Mg Tablet, 600 MG PO Q6HR Prescribed by: SHIKHA FORREST on 03/07/191717 Last Action: Reviewed Multivitamin (Flintstones) 1 Each Tab.chew, 1 EACH PO DAILY, (Reported) Entered as Reported by: PENNY DEUTSCH on 12/04/152041 Last Action: Reviewed [Benzocaine/Menthol] 56 ML AEROSOL, 56 ML TP UD PRN for PAIN- SEE INSTRUCTIONS Prescribed by: SHIKHA FORREST on 03/07/191717 Last Action: Reviewed OB - History Hx of Present Care: Yes Ultrasounds: Normal mid trimester US Obstetrical Complications: None Medical Complications: None Information Induced Hypertension: No Maternal Gestational Diabetes: No Hemorrhage: No Obstetrical History Hx : 3 Hx Para: 2 Hx # Term Pregnancies: 2 Hx Termination: No Hx Multiple Gestation: No Hx Stillbirth: No Hx Complication: No Hx Induced Hypertens: No Hx Maternal Gestational Diabet: No Delivery History Hx Dystocia: No Hx Forceps Assisted Delivery: No Hx Vacuum Extraction Assisted: No Hx Placenta Abnormality: No Hx Distress: No Hx Large For Gestational Age I: No Hx Small for Gestational Age I: No Hx Section: No Hx Vaginal Delivery Post C-Sec: No Hx Blood Disorders: No Adverse Rxn to Tranfusion: No Patient Past Medical History none Social History/Family History Alcohol Use: Denies Use Smoking Cessation: Never smoker Immunizations Influenza Vaccine Up-to-Date: Yes; Up-to-Date Hepatitis A: No Hepatitis B: Yes Tetanus Booster (TDap): Less than 5yrs Rubella: immune RPR/VDRL: Negative GBS Status: Negative HBsAG: Negative OB - Admission Exam Physical Exam Vitals: Vital Signs 03/30/23 03/30/23 03/30/23 03/30/23 03/30/23 23:05 23:08 23:15 23:17 23:56 Temp 36.6 Pulse 73 Resp 18 B/P (MAP) 84/47 (59) Pulse Ox 100 O2 Delivery Room Air Heart: Rhythm Normal Lungs: Clear Abdomen: Non tender Extremities: Normal Cervical Dilatation: 8cm Effacement: 100% Station: -1 Membranes: Ruptured Amniotic Fluid: Clear Heart Rate: 140's Accelerations: Accelerations Present Decelerations: Variable Decelerations Short Term Variability: Present Director Part Variability: Average (6-25) Contractions on Admission: < 5 Minutes Apart Intensity: Moderate Labs Laboratory Tests Test 03/30/23 19:45 03/30/23 19:55 03/30/23 21:05 Range/Units Urine Color YELLOW Urine Clarity CLEAR Urine pH 6.0 5-9 Urine Specific [place] 1.010 L 1.016-1.022 Urine Protein NEGATIVE NEGATIVE Urine Glucose (UA) NEGATIVE NEGATIVE Urine Ketones NEGATIVE NEGATIVE Urine Nitrite NEGATIVE NEGATIVE Urine Bilirubin NEGATIVE NEGATIVE Urine Urobilinogen 0.2 < = 1.0 MG/DL Urine Leukocyte Esterase NEGATIVE NEGATIVE Urine RBC (Auto) NEGATIVE NEGATIVE Urine RBC 0-2 /HPF Urine WBC 0-2 /HPF Urine Squamous Epithelial Cells 5-10 /HPF Urine Crystals NONE /LPF Urine Bacteria TRACE /HPF Urine Casts NONE /LPF Urine Mucus MODERATE H /LPF Urine Culture Indicated NO Membranes Rupture POSITIVE White Blood Count 8.5 4.3-11.0 10^3/uL Red Blood Count 3.25 L 3.80-5.11 10^6/uL Hemoglobin 9.6 L 11.5-16.0 g/dL Hematocrit 30 L 35-52 % Mean Corpuscular Volume 91 80-99 fL Mean Corpuscular Hemoglobin 30 25-34 pg Mean Corpuscular Hemoglobin Concent 32 32-36 g/dL Red Cell Distribution Width 13.1 10.0-14.5 % Platelet Count 146 130-400 10^3/uL Mean Platelet Volume 10.7 9.0-12.2 fL Immature Granulocyte % (Auto) 1 % Neutrophils (%) (Auto) 69 42-75 % Lymphocytes (%) (Auto) 19 12-44 % Monocytes (%) (Auto) 10 0-12 % Eosinophils (%) (Auto) 2 0-10 % Basophils (%) (Auto) 0 0-10 % Neutrophils # (Auto) 5.8 1.8-7.8 10^3/uL Lymphocytes # (Auto) 1.6 1.0-4.0 10^3/uL Monocytes # (Auto) 0.8 0.0-1.0 10^3/uL Eosinophils # (Auto) 0.2 0.0-0.3 10^3/uL Basophils # (Auto) 0.0 0.0-0.1 10^3/uL Immature Granulocyte # (Auto) 0.1 0.0-0.1 10^3/uL Syphilis Total Antibody Negative Negative OB - Assessment/Plan/Diagnosis Assessment Assessment: active labor Admission Dx IUP @40w3d SROM Active labor at term A+/ RI/ GBS neg Admission Status: Inpatient Order (span 2 midnights) Reason for Inpatient Admission: Acitve labor Plan Plan: Expectant Management Problems: (1) Active labor at term Assessment & Plan: IUP @ 40w3d Admit for labor (2) 40 weeks gestation of (3) Spontaneous rupture of amniotic membranes Assessment & Plan: GBS neg Expectant management JAZMYN ALBERT DO March 31, 2023 01:48
[2023-03-31] MEDS ORDERED: OXYTOCIN PRE-MIX DRIP 500 ML IV ONE ×3 (02:27→03:13)
[2023-03-31] MEDS ORDERED: NALOXONE 0.4 MG/ML 1 ML (NARCAN) VIAL IV PRN (03:15)
[2023-03-31] MEDS ORDERED: OXYTOCIN PRE-MIX DRIP 500 ML IV SCH (03:15)
[2023-03-31] MEDS ORDERED: DIBUCAINE 1% OINTMENT 28 GM TUBE TOP PRN (03:15)
[2023-03-31] MEDS ORDERED: BENZOCAINE/MENTHOL (DERMOPLAST) 56 ML CAN TP PRN (03:15)
[2023-03-31] MEDS ORDERED: WITCH HAZEL(TUCKS) 40 EA JAR TOP PRN (03:15)
--- NOTE | 2023-03-31 03:17 | OB Labor & Delivery Record ---
Vag Delivery Note Vag Delivery Note Date of Delivery: 03/31/23 Preoperative Diagnosis: Roopa Diaz is a (32 /Para 3 / 2, Gestational Age (wks)40with [ ] Postoperative Diagnosis: Same Surgeon: JAZMYN ALBERT Marketing Services Manager: [] Anesthesia: Epidural Delivery Type: Vacuum-assisted vaginal delivery, low position Findings: [] Liveborn female , apgars 7/8, weight 3150 g, 6 pounds 15 ounces Lacerations:First-degree perineal laceration Intact placenta with 3 vessel cord. No nuchal cord, body cord or shoulder dystocia Estimated Blood Loss: 100 ml Complications: None Condition: Stable Description of Procedure: The patient is a 32 year old female who presentedAt 40 weeks 2 days EGA with spontaneous rupture membranes and contractions every 2 to 3 minutes. She denied vaginal bleeding.. She was admitted and informed consent was obtained. Her labor course was Noneventful. She progressed to complete dilatation and began to push. She was then set up for delivery. The patient pushed for approximately 20 minutes. During this time the heart rate dropped to the 80s. It was a low +2/+3 station. O2 was placed on the mother.A scalp electrode was placed heart tones were still in the 80s to 90s. positioning was noted to be in the straight OP position. I discussed with the parents the patient and her significant other the risk benefits and alternatives of vacuum-assisted vaginal delivery. They verbalized understanding and were agreeable to vacuum- assisted vaginal delivery. The Kiwi vacuum was then placed lining up with the sutures. Vaginal exam was performed to confirm no entrapment of vaginal mucosa. The pressure was brought up to the yellow line. With the next contraction, The pressure was brought up to the green and gentle traction was applied. The head delivered to and the Kiwi popped off. The total time with the Kiwi on head was 1 minute and total time with traction was 30 seconds. The patient pushed the baby out to delivery of the head in a straight OP position. The mouth and nose were bulb suctioned and the anterior shoulder (left) delivered followed by the posterior shoulder followed by the rest the . After 60 seconds the cord was clamped and then cut by the father. The placenta delivered spontaneously intact with three- vessel cord. The cervix, vagina, Periurethral and perineal areas were all inspected. There was a first-degree perineal laceration which was repaired with 3-0 Rapide suture in 2 interrupted stitches. The QBL was 100 cc. The mother and tolerated the procedure well and a recovering in the room in stable condition. All sponge, instrument and needle counts were correct x2. Vitals - Labs Vital Signs - I&O Vital Signs Date Time Temp Pulse Resp B/P (MAP) Pulse Ox O2 Delivery O2 Flow Rate FiO2 03/30/23 23:56 36.6 03/30/23 23:17 84/47 (59) 03/30/23 23:15 73 73/42 (52) 03/30/23 23:13 70 86/50 (62) 03/30/23 23:11 64 64/38 (47) 03/30/23 23:08 94/54 (67) 100 03/30/23 23:05 104 18 102/56 (71) 100 Room Air 03/30/23 23:02 104 110/62 (78) 03/30/23 22:59 96 20 106/60 (75) 100 Room Air 03/30/23 22:55 83 109/60 (76) 100 Room Air 03/30/23 22:52 81 104/64 (77) 03/30/23 22:49 83 107/59 (75) 100 Room Air 03/30/23 22:46 76 119/63 (81) 100 Room Air 03/30/23 22:44 74 111/55 (73) 03/30/23 22:42 74 113/58 (76) 03/30/23 22:40 63 20 81/49 (60) 100 Room Air 03/30/23 22:33 88 20 119/77 (91) 100 Room Air 03/30/23 22:30 111 22 120/72 (88) 100 Room Air 03/30/23 22:14 37.5 03/30/23 21:45 37.1 03/30/23 20:08 37.3 91 20 99 Room Air I & O 03/31/23 07:00 Intake Total 2000 ml Balance 2000 ml Labs Laboratory Tests 03/30/23 19:45: Urine Color YELLOW, Urine Clarity CLEAR, Urine pH 6.0, Urine Specific [place] 1.010L, Urine Protein NEGATIVE, Urine Glucose (UA) NEGATIVE, Urine Ketones NEGATIVE, Urine Nitrite NEGATIVE, Urine Bilirubin NEGATIVE, Urine Urobilinogen 0.2, Urine Leukocyte Esterase NEGATIVE, Urine RBC (Auto) NEGATIVE, Urine RBC 0- 2, Urine WBC 0-2, Urine Squamous Epithelial Cells 5-10, Urine Crystals NONE, Urine Bacteria TRACE, Urine Casts NONE, Urine Mucus MODERATEH, Urine Culture In dicated NO 03/30/23 19:55: Membranes Rupture POSITIVE 03/30/23 21:05: White Blood Count 8.5, Red Blood Count 3.25L, Hemoglobin 9.6L, Hematocrit 30L, Mean Corpuscular Volume 91, Mean Corpuscular Hemoglobin 30, Mean Corpuscular Hemoglobin Concent 32, Red Cell Distribution Width 13.1, Platelet Count 146, Mean Platelet Volume 10.7, Immature Granulocyte % (Auto) 1, Neutrophils (%) (Auto) 69, Lymphocytes (%) (Auto) 19, Monocytes (%) (Auto) 10, Eosinophils (%) (Auto) 2, Basophils (%) (Auto) 0, Neutrophils # (Auto) 5.8, Lymphocytes # (Auto) 1.6, Monocytes # (Auto) 0.8, Eosinophils # (Auto) 0.2, Basophils # (Auto) 0.0, Immature Granulocyte # (Auto) 0.1, Syphilis Total Antibody Negative JAZMYN ALBERT DO March 31, 2023 03:17
[2023-03-31] MEDS: IBUPROFEN 800 MG (MOTRIN) TAB PO SCH ×3 (05:11→20:01)
[2023-03-31] MEDS: ACETAMINOPHEN 500 MG TAB (TYLENOL) PO SCH ×3 (05:11→20:01)
[2023-03-31] MEDS ORDERED: CATHETER FLUSH 10 ML SYR IV SCH (06:00)
[2023-03-31] MEDS: DOCUSATE SODIUM 100 MG (COLACE) CAP PO SCH ×2 (08:27→20:01)
[2023-03-31] MEDS: PRENATAL VITAMIN 1 EA TAB PO SCH (08:27)
[2023-03-31] MEDS: FERROUS SULF 325 MG (IRON) TAB PO SCH (08:27)
[2023-03-31] MEDS ORDERED: DOCUSATE CALCIUM 240 MG (SURFAK) CAP PO SCH (09:00)
[2023-03-31] MEDS ORDERED: HYDROcodone/APAP 5 MG/325 MG (LORTAB) TAB PO PRN ×2 (18:15→20:30)
[2023-04-01 01:20] VITALS: BP 116/64
[2023-04-01] MEDS: ACETAMINOPHEN 500 MG TAB (TYLENOL) PO SCH ×2 (03:34→11:34)
[2023-04-01] MEDS: IBUPROFEN 800 MG (MOTRIN) TAB PO SCH ×2 (03:34→11:33)
[2023-04-01 06:10] LABS: BASOPHILS # (AUTO) 0.1 10^3/uL (0.0-0.1); BASOPHILS % (AUTO) 1 % (0-10); EOSINOPHILS # (AUTO) 0.2 10^3/uL (0.0-0.3); EOSINOPHILS % (AUTO) 2 % (0-10); HEMATOCRIT 29 % (35-52); HEMOGLOBIN 9.5 g/dL (11.5-16.0); LYMPHOCYTES # (AUTO) 1.7 10^3/uL (1.0-4.0); LYMPHOCYTES % (AUTO) 18 % (12-44); MEAN CORPUSCULAR HEMOGLOBIN 30 pg (25-34); MEAN CORPUSCULAR HGB CONC 33 g/dL (32-36); MEAN CORPUSCULAR VOLUME 92 fL (80-99); MEAN PLATELET VOLUME 10.9 fL (9.0-12.2); MONOCYTES # (AUTO) 0.7 10^3/uL (0.0-1.0); MONOCYTES % (AUTO) 8 % (0-12); NEUTROPHILS # (AUTO) 6.8 10^3/uL (1.8-7.8); NEUTROPHILS % (AUTO) 71 % (42-75); PLATELET COUNT 148 10^3/uL (130-400); WHITE BLOOD COUNT 9.6 10^3/uL (4.3-11.0)
--- NOTE | 2023-04-01 08:26 | Postpartum Progress Note ---
Note Note Day # 1 Subjective: Patient has some perineal soreness from yesterday which was effecting her ability to walk, but is much better this AM. Ambulating, voiding. Tolerating a regular diet without nausea or vomiting. Normal lochia. Pain is well controlled with oral pain medications. Objective: Physical Exam: General - Alert and oriented, no apparent distress Abdomen - Soft, appropriately tender to palpation, non-distended, fundus firm at umbilicus Extremities - no edema, negative Shira's bilaterally Assessment: PPD 1 NVD Acute blood loss on anemia of Plan: Routine care. Encourage breast feeding. Encourage ambulation. Ferrous sulfate supplementation. Plan for discharge later today or tomorrow morning Vitals - Labs Vital Signs - I&O Vital Signs Date Time Temp Pulse Resp B/P (MAP) Pulse Ox O2 Delivery O2 Flow Rate FiO2 04/01/23 05:52 Room Air 0.00 04/01/23 01:20 36.6 62 18 116/64 (81) 98 Room Air 03/31/23 21:00 36.4 62 18 112/63 (79) 100 Room Air 03/31/23 16:30 37.0 73 18 100/55 (70) 98 Room Air 03/31/23 12:45 36.7 60 18 124/67 (86) 98 Room Air I & O 04/01/23 07:00 Intake Total 2000 ml Balance 2000 ml Labs Laboratory Tests 04/01/23 05:35: White Blood Count 9.6, Red Blood Count 3.14L, Hemoglobin 9.5L, Hematocrit 29L, Mean Corpuscular Volume 92, Mean Corpuscular Hemoglobin 30, Mean Corpuscular Hemoglobin Concent 33, Red Cell Distribution Width 13.3, Platelet Count 148, Mean Platelet Volume 10.9, Immature Granulocyte % (Auto) 1, Neutrophils (%) (Auto) 71, Lymphocytes (%) (Auto) 18, Monocytes (%) (Auto) 8, Eosinophils (%) (Auto) 2, Basophils (%) (Auto) 1, Neutrophils # (Auto) 6.8, Lymphocytes # (Auto) 1.7, Monocytes # (Auto) 0.7, Eosinophils # (Auto) 0.2, Basophils # (Auto) 0.1, Immature Granulocyte # (Auto) 0.1 SHIKHA FORREST DO April 01, 2023 08:26
[2023-04-01 09:30] VITALS: BP 103/58
[2023-04-01] MEDS: PRENATAL VITAMIN 1 EA TAB PO SCH (10:13)
[2023-04-01] MEDS: DOCUSATE SODIUM 100 MG (COLACE) CAP PO SCH (10:13)
[2023-04-01] MEDS: FERROUS SULF 325 MG (IRON) TAB PO SCH (10:13)
[2023-04-01 12:30] VITALS: BP 133/79
[2023-04-01 16:00] VITALS: BP 133/79
--- NOTE | 2023-04-02 07:36 | Anesthesia-Regional Post-Op ---
Regional Patient Condition Mental Status: Alert, Oriented x3 Circulation: Same as Pre-Op Headache: Absent Sensation: Full Recovery Motor Block: Absent Post Op Complications Complications None Follow Up Care/Instructions Patient Instructions None needed. Anesthesia/Patient Condition Patient is doing well, no complaints, stable vital signs, no apparent adverse anesthesia problems. No complications reported per nursing. ORIANA MONTES CRNA Apr 02, 2023 07:36
== END 2023-04-01 16:00 | disposition home or self-care (01) | DRG 806 ==
LOC: LDRP 19:42 → WSo 19:42 → LDRP 20:41
PROVIDERS: ADMIT Obstetrics & Gynecology; ATTEND Obstetrics & Gynecology
PROC: 10D07Z6 Extraction of Products of Conception, Vacuum, Via Natural or Artificial Opening (ICD-10-PCS; principal; 2023-03-31)
PROC: 0HQ9XZZ Repair Perineum Skin, External Approach (ICD-10-PCS; 2023-03-31)
DX: O48.0 Post-term pregnancy (principal); D62 Acute posthemorrhagic anemia; Z37.0 Single live birth; O70.0 First degree perineal laceration during delivery; O64.0XX0 Obstructed labor due to incomplete rotation of fetal head, not applicable or unspecified; O90.81 Anemia of the puerperium; Z3A.40 40 weeks gestation of pregnancy; Z79.899 Other long term (current) drug therapy; Z79.1 Long term (current) use of non-steroidal anti-inflammatories (NSAID); Z79.891 Long term (current) use of opiate analgesic; Z88.5 Allergy status to narcotic agent; Z88.0 Allergy status to penicillin
CPT/HCPCS: 36415; 81000; 84112; 85025; 86780; 86850; 86900; 86901; 99213